=== PATIENT | male | born 1950 | race Caucasian/White ===

== ENCOUNTER 2024-09-16 08:20 | Day surgery (SDC) | payer MEDICARE ==
[2024-09-12 11:41] LABS: BASOPHILS % (AUTO) 0.6 % (0-1); EOSINOPHILS # (AUTO) 0.4 X10'3 (0-0.9); HEMATOCRIT 40.2 % (42.0-52.0); HEMOGLOBIN 13.3 g/dl (14.0-17.9); LYMPHOCYTES # (AUTO) 1.4 X10'3 (1.1-4.8); LYMPHOCYTES % (AUTO) 22.4 % (21-51); MEAN CORPUSCULAR HGB CONC 33.1 g/dL (33.0-36.5); MEAN CORPUSCULAR VOLUME 96.8 FL (78-98); MEAN PLATELET VOLUME 8.3 FL (7.4-10.4); MONOCYTES # (AUTO) 0.5 X10'3 (0-0.9); MONOCYTES % (AUTO) 8.8 % (2-12); NEUTROPHILS # (AUTO) 3.8 X10'3 (1.8-7.7); NEUTROPHILS % (AUTO) 62.2 % (42-75); PLATELET COUNT 210 X10'3 (140-440); RED BLOOD COUNT 4.15 X10'6 (4.70-6.10); RED CELL DISTRIBUTION WIDTH 13.1 % (11.5-14.5); WHITE BLOOD COUNT 6.2 X10'3 (4.5-11.0)
[2024-09-12 12:13] LABS: APTT 29 SECONDS (22-32); PROTHROMBIN TIME 10.8 SECONDS (9.0-12.0)
[2024-09-12 12:16] LABS: ALBUMIN 3.8 G/DL (3.4-5.0); ANION GAP 5 (8-16); BLOOD UREA NITROGEN 16 MG/DL (7-18); BUN/CREATININE RATIO 18.8 (10.0-20.0); CALCIUM 8.3 MG/DL (8.5-10.1); CHLORIDE 103 MMOL/L (99-107); CHOL/HDL RATIO 2.4 (0.00-4.99); CHOLESTEROL 150 MG/DL (0-200); CREATININE 0.85 MG/DL (0.60-1.10); GLUCOSE 105 MG/DL (70-104); HDL CHOLESTEROL 63 MG/DL (35-60); LDL CHOLESTEROL 73 MG/DL (50-100); POTASSIUM 3.8 MMOL/L (3.5-5.1); SODIUM 139 MMOL/L (135-145); TOTAL CARBON DIOXIDE 30.6 MMOL/L (24-32); TRIGLYCERIDES 120 MG/DL (20-135); eGFR 88 ML/MIN
[~2024-09-16] VITALS: Ht 188 cm; Wt 98.2 kg
[2024-09-16] VITALS (10 sets, daily range): BP systolic 106–145; BP diastolic 56–78; PULSE 55–73; RESP 15–20; TEMP 97.9; O2SAT 92–98
[~2024-09-16 08:20] MED LIST: ATOR10TA87 PO; NORCO10T PO; OMEP-84 PO
[2024-09-16] MEDS ORDERED: BETA1TAB20 PO (08:53)
[2024-09-16] MEDS ORDERED: GLUC100017 (08:53)
[2024-09-16] MEDS ORDERED: LEVO88TA7 PO (08:53)
[2024-09-16] MEDS ORDERED: MULT-1172 PO (08:53)
[2024-09-16] MEDS ORDERED: THC GUMMIES (08:53)
[2024-09-16] MEDS ORDERED: ATOR20TA66 PO (08:53)
[2024-09-16] MEDS ORDERED: CALC625T31 (08:53)
[2024-09-16] MEDS: diphenhydrAMINE 25mg capsule PO PRN (09:18)
[2024-09-16] MEDS: LORazepam 0.5 MG tablet PO PRN (09:18)
[2024-09-16] MEDS: normal saline 1,000 ML IV SCH (09:18)
[2024-09-16] MEDS ORDERED: heparin 1,000unit/ml 10ml vial 10 ML ONE (12:39)
[2024-09-16] MEDS ORDERED: iohexol 350MG/ML 100ml bottle IV ONE (12:39)
[2024-09-16] MEDS ORDERED: fentaNYL/PF 50MCG/1 ML 2ML syringe ONE (12:39)
[2024-09-16] MEDS ORDERED: LIDOcaine 1% (10mg/ml) 2ml vial ONE (12:39)
[2024-09-16] MEDS ORDERED: verapamil 2.5 mg/ml inj IV ONE (12:39)
[2024-09-16] MEDS ORDERED: midazolam 1 mg/ML 2ml injection ONE ×2 (12:39→13:27)
[2024-09-16] MEDS ORDERED: nitroGLYCERIN 500mcg/5mL D5W 5 ML IV ONE (12:42)
[2024-09-16] MEDS ORDERED: HYDROcodone/acetaminophen 5mg/325mg tablet PO PRN (14:10)
[2024-09-16] MEDS ORDERED: proCHLORperazine 10 MG/2 ml inj IV PRN (14:10)
[2024-09-16] MEDS ORDERED: ondansetron/PF 4mg/2ml inj IV PRN (14:10)
[2024-09-16] MEDS ORDERED: HYDROcodone/acetaminophen 10/325mg tab PO PRN (14:10)
== END 2024-09-16 17:00 | disposition home or self-care (01) ==
LOC: SSTAY O 08:20
PROVIDERS: ATTEND Student in an Organized Health Care Education/Training Program
DX: I71.40 Abdominal aortic aneurysm, without rupture, unspecified (principal); I25.10 Atherosclerotic heart disease of native coronary artery without angina pectoris; I35.1 Nonrheumatic aortic (valve) insufficiency; E78.00 Pure hypercholesterolemia, unspecified; J44.9 Chronic obstructive pulmonary disease, unspecified; K21.9 Gastro-esophageal reflux disease without esophagitis; F41.9 Anxiety disorder, unspecified; Z85.820 Personal history of malignant melanoma of skin; Z79.890 Hormone replacement therapy; Z79.899 Other long term (current) drug therapy; Z88.8 Allergy status to other drugs, medicaments and biological substances
CPT/HCPCS: 36415; 80048; 80061; 85025; 85610; 85730; 93005; 93458; 99152; 99153; A6258; A6402; C1769; C1894; J1644; J2001; J2250; J3010; J3490; J7030; Q0163; Q9967; Z7610; A6449

== ENCOUNTER 2024-10-09 13:00 | Inpatient (IN) | payer MEDICARE ==
[2024-10-08] MEDS: albuterol 2.5 MG/3 ML nebule NEB ONE (12:54)
[2024-10-08 13:00] VITALS: PULSE 68; RESP 15; O2SAT 96
[2024-10-08 13:13] VITALS: PULSE 69; RESP 16
[2024-10-08 14:36] LABS: BILIRUBIN,URINE NEGATIVE (Neg); CLARITY,URINE CLEAR (Clear); COLOR,URINE YELLOW (Yellow); GLUCOSE, URINE NEGATIVE (Neg); KETONES,URINE NEGATIVE (Neg); LEUKOCYTE ESTERASE ,URINE NEGATIVE (Neg); NITRITES, URINE NEGATIVE (Neg); OCCULT BLOOD,URINE NEGATIVE (Neg); PH,URINE 6.5 (4.8-8.0); PROTEIN,URINE NEGATIVE (Neg); UROBILINOGEN,URINE 0.2 E.U/dL (0.2-1.0)
[2024-10-08 14:37] LABS: BASOPHILS % (AUTO) 0.4 % (0-1); EOSINOPHILS # (AUTO) 0.4 X10'3 (0-0.9); EOSINOPHILS % (AUTO) 5.2 % (0-6); LYMPHOCYTES # (AUTO) 1.6 X10'3 (1.1-4.8); LYMPHOCYTES % (AUTO) 22.3 % (21-51); MEAN CORPUSCULAR HEMOGLOBIN 32.6 PG (27.0-31.0); MEAN CORPUSCULAR HGB CONC 33.8 g/dL (33.0-36.5); MEAN CORPUSCULAR VOLUME 96.4 FL (78-98); MEAN PLATELET VOLUME 8.5 FL (7.4-10.4); MONOCYTES # (AUTO) 0.7 X10'3 (0-0.9); MONOCYTES % (AUTO) 10.3 % (2-12); NEUTROPHILS # (AUTO) 4.4 X10'3 (1.8-7.7); NEUTROPHILS % (AUTO) 61.8 % (42-75); PRE OP HEMATOCRIT 41.9 % (42.0-52.0); PRE OP HEMOGLOBIN 14.2 g/dL (14.0-17.9); PRE OP PLATELET COUNT 237 X10'3 (140-440); PRE OP WHITE BLOOD COUNT 7.1 10'3 (4.8-10.8); RED BLOOD COUNT 4.35 X10'6 (4.70-6.10); RED CELL DISTRIBUTION WIDTH 13.7 % (11.5-14.5)
[2024-10-08 14:40] LABS: UA COLLECTION TYPE CLN CATCH MIDSTREAM
[2024-10-08 14:45] LABS: PRE OP PROTIME 10.3 SECONDS (9.0-12.0)
[2024-10-08 14:46] LABS: HEMOGLOBIN A1C 5.7 % (4.5-6.2)
[2024-10-08 14:47] LABS: ALBUMIN 4.3 G/DL (3.4-5.0); ALBUMIN/GLOBULIN RATIO 1.2 (1.1-1.5); ALKALINE PHOSPHATASE 87 IU/L (46-116); BLOOD UREA NITROGEN 17 MG/DL (7-18); BUN/CREATININE RATIO 22.1 (10.0-20.0); CALCIUM 8.7 MG/DL (8.5-10.1); CHLORIDE 102 MMOL/L (99-107); CREATININE 0.77 MG/DL (0.60-1.10); PRE OP ALT 38 U/L (30-65); PRE OP ANION GAP 5 (8-16); PRE OP AST 26 U/L (10-37); PRE OP BILIRUB, TOTAL 0.6 MG/DL (0.0-1.0); PRE OP GLUCOSE 107 MG/DL (70-104); PRE OP POTASSIUM 3.7 MMOL/L (3.4-5.1); PRE OP SODIUM 138 MMOL/L (135-145); TOTAL CARBON DIOXIDE 30.8 MMOL/L (24-32); eCRCL 98 ML/MIN; eGFR > 90 ML/MIN
[2024-10-08 15:04] LABS: ABG BASE EXCESS -0.5 mmol/L (-2.0-3.0); ABG HCO3 22.5 mmol/L (21.0-28.0); ABG OXYGEN SATURATION 96.6 % (94.0-98.0); ABG PCO2 (T) 32.5 mmHg (35.0-48.0); ABG PH (T) 7.458 (7.350-7.450); ABG PO2 (T) 84.7 mmHg (83.0-108.0); ALLEN'S TEST POSITIVE; FCOHb 1.9 % (0.5-1.5); FHHb 3.3 % (0.0-5.0); FMetHb 0.3 % (0.0-1.5); FO2Hb 94.5 % (94.0-98.0); MODE ROOM AIR; TOTAL HEMOGLOBIN 14.6 G/dl (13.5-17.5)
[~2024-10-09] VITALS: Ht 185.4 cm; Wt 111.0 kg
[~2024-10-09 13:00] MED LIST changes: +ASPI-1071 PO; -ATOR10TA87 PO; +ATOR20TA66 PO; +LEVO88TA7 PO; +MULT-1172 PO; -NORCO10T PO
[2024-10-09] MEDS ORDERED: [UNRECOGNIZED DRUG - OTHER] (13:16)
[2024-10-09] MEDS ORDERED: THC (13:16)
[2024-10-09] MEDS ORDERED: ASCO500C17 PO (13:16)
[2024-10-10] VITALS (28 sets, daily range): BP systolic 90–135; BP diastolic 31–68; PULSE 56–98; RESP 12–18; TEMP 96.4–98; O2SAT 95–100
[2024-10-10] MEDS: Insulin Reg/NS 100units/100mL 100 ML IV SCH ×2 (05:30→13:05)
[2024-10-10] MEDS ORDERED: dextrose 50%-water 50ml dispensing syringe IV PRN ×2 (05:30→13:05)
[2024-10-10] MEDS: mupirocin 2% nasal ointment 1gm UD NS ONE (06:15)
[2024-10-10] MEDS: metoprolol tartrate 12.5mg (1/2 tablet) PO ONE (06:15)
[2024-10-10] MEDS: VANCOMYCIN 1,500MG inj. 1,500 MG in normal saline 500ml IV soln 300 ML IV ONE (06:15)
[2024-10-10] MEDS: ceFAZolin 2gm in dextrose, iso 50 ML IV ONE (06:18)
[2024-10-10] MEDS: famotidine 20mg tablet PO ONE (06:19)
[2024-10-10] MEDS: ringers solution, lacted 1,000 ML IV SCH (06:19)
[2024-10-10] MEDS ORDERED: epiNEPHrine 1 mg/ml inj ONE (06:37)
[2024-10-10] MEDS ORDERED: vancomycin 1,000mg inj ONE (06:38)
[2024-10-10] MEDS ORDERED: BUPIVAcaine 0.5% inj/PF 30 ML ONE (06:38)
[2024-10-10] MEDS ORDERED: ceFAZolin 1000mg inj ONE ×2 (06:38→12:37)
[2024-10-10] MEDS: LORazepam 2 mg/ml vial IV ONE (07:27)
[2024-10-10] MEDS ORDERED: MIDAZolam 1mg/ml 10ml vial ONE (07:46)
[2024-10-10] MEDS ORDERED: potassium Cl 2 mEq/ml inj IV ONE (08:00)
[2024-10-10] MEDS ORDERED: FENTANYL-0.9 % NACL/PF 100 ML IV SCH (08:05)
[2024-10-10] MEDS ORDERED: midazolam 100mg in NS 100ml 100 ML IV SCH (08:05)
[2024-10-10] MEDS ORDERED: fentaNYL/PF 50MCG/1 ML 2ML syringe IV PRN (08:05)
[2024-10-10] MEDS: midazolam 1 mg/ML 2ml injection IV ONE (08:05)
[2024-10-10] MEDS ORDERED: isoflurane 100ml inhalation liquid IH ONE (08:08)
[2024-10-10 08:41] LABS: ABG BASE EXCESS -2.8 mmol/L (-2.0-3.0); ABG HCO3 21.7 mmol/L (21.0-28.0); ABG OXYGEN SATURATION 99.7 % (94.0-98.0); ABG PCO2 36.9 mmHg (35.0-48.0); ABG PH 7.388 (7.350-7.450); CL (ABG) 105 mmol/L (98-107); FCOHb 0.5 % (0.5-1.5); FHHb 0.3 % (0.0-5.0); FMetHb 0.1 % (0.0-1.5); FO2Hb 99.1 % (94.0-98.0); GLUCOSE (ABG) 94 mg/dl (65-95); IONIZED CA (ABG) 1.13 mmol/L (1.15-1.33); K (ABG) 3.9 mmol/L (3.40-4.50); TOTAL HEMOGLOBIN 12.9 G/dl (13.5-17.5)
[2024-10-10] MEDS ORDERED: rocuronium 10mg/ml inj IV ONE ×4 (08:42→12:07)
[2024-10-10] MEDS ORDERED: SUfentanil 50mcg/ml 1ml amp IV ONE (08:42)
[2024-10-10] MEDS ORDERED: 0.9 % SODIUM CHLORIDE 10 ML VIAL ONE (08:42)
[2024-10-10] MEDS ORDERED: LIDOcaine 2% (20mg/ml) 5ml vial ONE (08:42)
[2024-10-10] MEDS ORDERED: phenylephrine 10mg/ml inj. ONE (08:42)
[2024-10-10] MEDS ORDERED: albumin (Human) 5% 250ml 250 ML IV ONE ×2 (09:09→12:26)
[2024-10-10] MEDS ORDERED: ondansetron/PF 4mg/2ml inj ONE (09:09)
[2024-10-10] MEDS ORDERED: dexamethasone sod phosphate 4mg/ml inj. ONE (09:09)
[2024-10-10] MEDS: ceFAZolin 1000mg inj IR ONE (09:36)
[2024-10-10 09:42] LABS: ABG BASE EXCESS VENOUS -0.9 mmol/L (-2.0-3.0); ABG HCO3 VENOUS 24.6 mmol/L (22.0-29.0); ABG OXYGEN SATURATION VENOUS 80.2 % (60.0-85.0); ABG PCO2 VENOUS 44.7 mmHg (38.0-54.0); ABG PH (VENOUS) 7.359 (7.320-7.430); ABG PO2 VENOUS 45.9 mmHg (23.0-48.0); CL (ABG) 99 mmol/L (98-107); FCOHb VENOUS 0.1 % (0.5-1.5); FHHb VENOUS 19.8 %; FMetHb VENOUS 0.1 % (0.5-1.5); GLUCOSE (ABG) 93 mg/dl (65-95); IONIZED CA (ABG) 0.95 mmol/L (1.15-1.33); K (ABG) 4.1 mmol/L (3.40-4.50); TOTAL HEMOGLOBIN 10.2 G/dl (13.5-17.5)
[2024-10-10 09:48] LABS: ABG BASE EXCESS -0.5 mmol/L (-2.0-3.0); ABG HCO3 24.7 mmol/L (21.0-28.0); ABG OXYGEN SATURATION 99.5 % (94.0-98.0); ABG PCO2 42.7 mmHg (35.0-48.0); CL (ABG) 101 mmol/L (98-107); FCOHb 0.3 % (0.5-1.5); FHHb 0.5 % (0.0-5.0); FMetHb 0.1 % (0.0-1.5); FO2Hb 99.1 % (94.0-98.0); GLUCOSE (ABG) 97 mg/dl (65-95); K (ABG) 3.9 mmol/L (3.40-4.50); TOTAL HEMOGLOBIN 10.3 G/dl (13.5-17.5)
[2024-10-10] MEDS: vancomycin 1,000mg inj IVT ONE (09:51)
[2024-10-10 10:23] LABS: ABG BASE EXCESS -1.2 mmol/L (-2.0-3.0); ABG HCO3 23.8 mmol/L (21.0-28.0); ABG OXYGEN SATURATION 99.5 % (94.0-98.0); ABG PCO2 40.7 mmHg (35.0-48.0); ABG PH 7.384 (7.350-7.450); CL (ABG) 102 mmol/L (98-107); FCOHb 0.3 % (0.5-1.5); FHHb 0.5 % (0.0-5.0); FMetHb 0.1 % (0.0-1.5); FO2Hb 99.1 % (94.0-98.0); GLUCOSE (ABG) 103 mg/dl (65-95); IONIZED CA (ABG) 1.01 mmol/L (1.15-1.33); K (ABG) 3.9 mmol/L (3.40-4.50); TOTAL HEMOGLOBIN 10.4 G/dl (13.5-17.5)
[2024-10-10] MEDS ORDERED: propofol inj 20 ML IV ONE (10:29)
[2024-10-10 10:45] LABS: ABG BASE EXCESS -1.4 mmol/L (-2.0-3.0); ABG HCO3 22.6 mmol/L (21.0-28.0); ABG OXYGEN SATURATION 99.3 % (94.0-98.0); ABG PCO2 35.3 mmHg (35.0-48.0); ABG PH 7.424 (7.350-7.450); CL (ABG) 103 mmol/L (98-107); FCOHb 0.3 % (0.5-1.5); FHHb 0.7 % (0.0-5.0); FMetHb 0.3 % (0.0-1.5); FO2Hb 98.7 % (94.0-98.0); GLUCOSE (ABG) 99 mg/dl (65-95); IONIZED CA (ABG) 0.98 mmol/L (1.15-1.33); K (ABG) 3.8 mmol/L (3.40-4.50); TOTAL HEMOGLOBIN 10.4 G/dl (13.5-17.5)
[2024-10-10 11:20] LABS: ABG BASE EXCESS -0.1 mmol/L (-2.0-3.0); ABG HCO3 22.7 mmol/L (21.0-28.0); ABG OXYGEN SATURATION 98.9 % (94.0-98.0); ABG PCO2 30.7 mmHg (35.0-48.0); ABG PH 7.487 (7.350-7.450); ABG PO2 255.6 mmHg (83.0-108.0); CL (ABG) 101 mmol/L (98-107); FCOHb 0.3 % (0.5-1.5); FHHb 1.1 % (0.0-5.0); FMetHb 0.3 % (0.0-1.5); FO2Hb 98.3 % (94.0-98.0); GLUCOSE (ABG) 118 mg/dl (65-95); IONIZED CA (ABG) 1.25 mmol/L (1.15-1.33); K (ABG) 4.4 mmol/L (3.40-4.50); TOTAL HEMOGLOBIN 10.1 G/dl (13.5-17.5)
[2024-10-10 12:00] LABS: ABG BASE EXCESS -2.7 mmol/L (-2.0-3.0); ABG HCO3 21.7 mmol/L (21.0-28.0); ABG OXYGEN SATURATION 99.1 % (94.0-98.0); ABG PCO2 35.8 mmHg (35.0-48.0); CL (ABG) 104 mmol/L (98-107); FCOHb 0.3 % (0.5-1.5); FHHb 0.9 % (0.0-5.0); FMetHb 0.3 % (0.0-1.5); FO2Hb 98.5 % (94.0-98.0); GLUCOSE (ABG) 115 mg/dl (65-95); IONIZED CA (ABG) 1.09 mmol/L (1.15-1.33); K (ABG) 4.3 mmol/L (3.40-4.50); TOTAL HEMOGLOBIN 9.7 G/dl (13.5-17.5)
[2024-10-10 12:03] LABS: ACTIVATED CLOTTING TIME 128 SEC (101-148)
[2024-10-10 12:33] LABS: BASOPHILS % (AUTO) 0.4 % (0-1); EOSINOPHILS # (AUTO) 0.2 X10'3 (0-0.9); EOSINOPHILS % (AUTO) 1.7 % (0-6); HEMATOCRIT 23.8 % (42.0-52.0); LYMPHOCYTES # (AUTO) 0.9 X10'3 (1.1-4.8); MEAN CORPUSCULAR HEMOGLOBIN 32.6 PG (27.0-31.0); MEAN CORPUSCULAR HGB CONC 33.6 g/dL (33.0-36.5); MONOCYTES # (AUTO) 0.5 X10'3 (0-0.9); MONOCYTES % (AUTO) 4.3 % (2-12); NEUTROPHILS % (AUTO) 85.6 % (42-75); PLATELET COUNT 121 X10'3 (140-440); RED BLOOD COUNT 2.46 X10'6 (4.70-6.10); RED CELL DISTRIBUTION WIDTH 13.3 % (11.5-14.5); WHITE BLOOD COUNT 11.7 X10'3 (4.5-11.0)
[2024-10-10 12:49] LABS: APTT 39 SECONDS (22-32); FIBRINOGEN 138 MG/DL (177-424); INR 1.4 INR; PROTHROMBIN TIME 14.6 SECONDS (9.0-12.0)
[2024-10-10] MEDS ORDERED: potassium Cl 20 mEq SR tablet PO PRN (13:05)
[2024-10-10] MEDS ORDERED: mineral oil 133ml enema RC PRN (13:05)
[2024-10-10] MEDS ORDERED: Neutra Phos packet PO PRN (13:05)
[2024-10-10] MEDS ORDERED: potassium Cl 40MEQ/270ML bag 250 ML IV PRN (13:05)
[2024-10-10] MEDS ORDERED: sodium phosphate inj. 30 MMOL in dextrose 5%-water 250 ML IV PRN (13:05)
[2024-10-10] MEDS ORDERED: potassium CL 10mEq/100ml bag 100 ML IV PRN (13:05)
[2024-10-10] MEDS ORDERED: metoclopramide 5 mg/ml inj IV PRN (13:05)
[2024-10-10] MEDS ORDERED: insulin glargine (Lantus) pen - multi-dose SQ PRN (13:05)
[2024-10-10] MEDS ORDERED: sodium phosphate inj. 15 MMOL in dextrose 5%-water 250 ML IV PRN (13:05)
[2024-10-10] MEDS ORDERED: potassium Cl 40MEQ/1/2NS 520ml 520 ML IV PRN (13:05)
[2024-10-10] MEDS ORDERED: magnesium hydroxide 30ml (MOM) UD suspension PO PRN (13:05)
[2024-10-10] MEDS ORDERED: acetaminophen 325mg tablet PO PRN (13:05)
[2024-10-10] MEDS: albumin (Human) 5% 250ml 250 ML IV PRN (13:24)
[2024-10-10 13:33] LABS: ABG BASE EXCESS -4.7 mmol/L (-2.0-3.0); ABG HCO3 21.8 mmol/L (21.0-28.0); ABG OXYGEN SATURATION 99.6 % (94.0-98.0); ABG PCO2 (T) 44.2 mmHg (35.0-48.0); ABG PH (T) 7.305 (7.350-7.450); ABG PO2 (T) 398.2 mmHg (83.0-108.0); FCOHb 0.3 % (0.5-1.5); FHHb 0.4 % (0.0-5.0); FMetHb 0.3 % (0.0-1.5); MODE VENT - SIMV; PEEP 5 cm H2O; RESPIRATORY RATE 12 b/min; TIDAL VOLUME 600 mL; TOTAL HEMOGLOBIN 10.7 G/dl (13.5-17.5)
[2024-10-10 13:48] LABS: BASOPHILS % (AUTO) 0.1 % (0-1); EOSINOPHILS # (AUTO) 0.2 X10'3 (0-0.9); EOSINOPHILS % (AUTO) 1.3 % (0-6); HEMOGLOBIN 8.9 g/dl (14.0-17.9); LYMPHOCYTES % (AUTO) 6.3 % (21-51); MEAN CORPUSCULAR HEMOGLOBIN 32.3 PG (27.0-31.0); MEAN CORPUSCULAR HGB CONC 33.1 g/dL (33.0-36.5); MEAN CORPUSCULAR VOLUME 97.5 FL (78-98); MEAN PLATELET VOLUME 8.2 FL (7.4-10.4); MONOCYTES # (AUTO) 0.5 X10'3 (0-0.9); MONOCYTES % (AUTO) 3.5 % (2-12); NEUTROPHILS # (AUTO) 13.5 X10'3 (1.8-7.7); NEUTROPHILS % (AUTO) 88.8 % (42-75); PLATELET COUNT 155 X10'3 (140-440); RED BLOOD COUNT 2.77 X10'6 (4.70-6.10); RED CELL DISTRIBUTION WIDTH 13.6 % (11.5-14.5); WHITE BLOOD COUNT 15.2 X10'3 (4.5-11.0)
[2024-10-10 13:58] LABS: ALANINE AMINOTRANSFERASE 19 U/L (12-78); ALBUMIN 2.4 G/DL (3.4-5.0); ALBUMIN/GLOBULIN RATIO 1.6 (1.1-1.5); ALKALINE PHOSPHATASE 32 IU/L (46-116); ANION GAP 7 (8-16); ASPARTATE AMINO TRANSFERASE 29 U/L (10-37); BILIRUBIN,TOTAL 0.8 MG/DL (0.1-1.0); BLOOD UREA NITROGEN 11 MG/DL (7-18); BUN/CREATININE RATIO 18.6 (10.0-20.0); CHLORIDE 112 MMOL/L (99-107); CREATININE 0.59 MG/DL (0.60-1.10); GLUCOSE 194 MG/DL (70-104); MAGNESIUM 1.9 MG/DL (1.5-2.4); PHOSPHORUS 2.9 MG/DL (2.3-4.5); POTASSIUM 3.4 MMOL/L (3.5-5.1); SODIUM 141 MMOL/L (135-145); TOTAL CARBON DIOXIDE 21.9 MMOL/L (24-32); TOTAL PROTEIN 3.9 G/DL (6.4-8.2); eCRCL 124 ML/MIN; eGFR > 90 ML/MIN
[2024-10-10 14:06] LABS: CALCIUM 6.1 MG/DL (8.5-10.1)
[2024-10-10] MEDS: sodium chloride 0.45% 1,000 ML IV SCH (14:24)
[2024-10-10 15:43] LABS: APTT 45 SECONDS (22-32); FIBRINOGEN 97 MG/DL (177-424); INR 1.6 INR; PROTHROMBIN TIME 16.4 SECONDS (9.0-12.0)
[2024-10-10] MEDS: ceFAZolin/D5W- 1GM premix 50 ML IV SCH (16:37)
[2024-10-10] MEDS: albumin (Human) 5% 250ml 250 ML IV ONE (16:38)
[2024-10-10] MEDS ORDERED: [UNRECOGNIZED DRUG - OTHER] IV ONE (16:45)
[2024-10-10] MEDS: [UNRECOGNIZED DRUG - OTHER] IV ONE (17:22)
[2024-10-10] MEDS: potassium Cl 20mEq/100mL bag 100 ML IV PRN (18:00)
[2024-10-10 18:05] LABS: HEMATOCRIT 24.1 % (42.0-52.0); MEAN CORPUSCULAR HEMOGLOBIN 31.3 PG (27.0-31.0); MEAN CORPUSCULAR VOLUME 94.9 FL (78-98); PLATELET COUNT 81 X10'3 (140-440); RED BLOOD COUNT 2.54 X10'6 (4.70-6.10); RED CELL DISTRIBUTION WIDTH 14.2 % (11.5-14.5); WHITE BLOOD COUNT 18.1 X10'3 (4.5-11.0)
[2024-10-10 18:10] LABS: APTT 42 SECONDS (22-32); FIBRINOGEN 243 MG/DL (177-424); PROTHROMBIN TIME 10.5 SECONDS (9.0-12.0)
[2024-10-10] MEDS: amiodarone 150mg/dext, iso-os 100 ML IV ONE ×2 (18:12→18:34)
[2024-10-10] MEDS: calcium chloride 100 MG/1 ML inj IV ONE (18:15)
[2024-10-10 18:22] LABS: ABG BASE EXCESS -5.9 mmol/L (-2.0-3.0); ABG HCO3 19.4 mmol/L (21.0-28.0); ABG OXYGEN SATURATION 97.9 % (94.0-98.0); ABG PCO2 (T) 36.3 mmHg (35.0-48.0); ABG PH (T) 7.343 (7.350-7.450); ABG PO2 (T) 111.5 mmHg (83.0-108.0); FCOHb 0.4 % (0.5-1.5); FHHb 2.1 % (0.0-5.0); FMetHb 0.3 % (0.0-1.5); FO2Hb 97.2 % (94.0-98.0); PATIENT TEMPERATURE 36.3; PEEP 5 cm H2O; RESPIRATORY RATE 12 b/min; TIDAL VOLUME 600 mL
[2024-10-10] MEDS: amiodarone/D5 360MG/200ML BAG 200 ML IV SCH (18:35)
[2024-10-10] MEDS: magnesium sulf-water 4G/100mL 100 ML IV PRN (18:35)
[2024-10-10] MEDS: nitroGLYCERIN-Tridil 50MG/D5W 250 ML IV PRN (18:36)
[2024-10-10 19:28] LABS: APTT 34 SECONDS (22-32); FIBRINOGEN 252 MG/DL (177-424); PROTHROMBIN TIME 10.4 SECONDS (9.0-12.0)
[2024-10-10] MEDS: NORepinephrine 8mg/ 250ml NS 250 ML IV PRN (19:30)
[2024-10-10 19:38] LABS: ANION GAP 15 (8-16); BLOOD UREA NITROGEN 15 MG/DL (7-18); BUN/CREATININE RATIO 14.4 (10.0-20.0); CALCIUM 8.1 MG/DL (8.5-10.1); CHLORIDE 110 MMOL/L (99-107); CREATININE 1.04 MG/DL (0.60-1.10); GLUCOSE 167 MG/DL (70-104); SODIUM 145 MMOL/L (135-145); TOTAL CARBON DIOXIDE 19.6 MMOL/L (24-32); eCRCL 70 ML/MIN; eGFR 70 ML/MIN
[2024-10-10] MEDS: sennosides/docusate sodium tablet PO SCH (20:00)
[2024-10-10] MEDS: mupirocin 2% nasal ointment 1gm UD NS SCH (20:05)
[2024-10-10] MEDS: VANCOMYCIN 1GM 200ML H20 (PEG) 200 ML IV SCH (20:05)
[2024-10-10] MEDS: atorvastatin 10mg tablet PO SCH (20:05)
[2024-10-10] MEDS: HYDROcodone/acetaminophen 10/325mg tab PO PRN (20:06)
[2024-10-10] MEDS: morphine 2 MG/ML inj. syringe IV PRN (21:01)
[2024-10-10] MEDS ORDERED: albuterol 2.5 MG/3 ML nebule NEB PRN (21:35)
[2024-10-10] MEDS: morphine 4 MG/ML inj SYRINge IV PRN (22:03)
[2024-10-11] VITALS (25 sets, daily range): BP systolic 88–130; BP diastolic 38–67; PULSE 65–78; RESP 7–16; O2SAT 92–96
[2024-10-11] MEDS: HYDROcodone/acetaminophen 10/325mg tab PO PRN (01:19)
[2024-10-11 04:59] LABS: ALANINE AMINOTRANSFERASE 49 U/L (12-78); ALBUMIN 3.2 G/DL (3.4-5.0); ALBUMIN/GLOBULIN RATIO 1.6 (1.1-1.5); ALKALINE PHOSPHATASE 36 IU/L (46-116); ANION GAP 9 (8-16); ASPARTATE AMINO TRANSFERASE 76 U/L (10-37); BILIRUBIN,TOTAL 1.1 MG/DL (0.1-1.0); BLOOD UREA NITROGEN 21 MG/DL (7-18); CALCIUM 7.6 MG/DL (8.5-10.1); CHLORIDE 109 MMOL/L (99-107); CREATININE 0.84 MG/DL (0.60-1.10); EOSINOPHILS % (AUTO) 0 % (0-6); GLUCOSE 157 MG/DL (70-104); HEMOGLOBIN 7.2 g/dl (14.0-17.9); LYMPHOCYTES # (AUTO) 0.6 X10'3 (1.1-4.8); MAGNESIUM 2.5 MG/DL (1.5-2.4); MEAN CORPUSCULAR VOLUME 90.7 FL (78-98); MONOCYTES # (AUTO) 0.9 X10'3 (0-0.9); MONOCYTES % (AUTO) 6.5 % (2-12); PHOSPHORUS 3.3 MG/DL (2.3-4.5); POTASSIUM 4.8 MMOL/L (3.5-5.1); SODIUM 140 MMOL/L (135-145); TOTAL CARBON DIOXIDE 22.2 MMOL/L (24-32); TOTAL PROTEIN 5.2 G/DL (6.4-8.2); eCRCL 87 ML/MIN; eGFR 89 ML/MIN
[2024-10-11 05:00] LABS: BASOPHILS % (AUTO) 0 % (0-1); LYMPHOCYTES % (AUTO) 4.5 % (21-51); MEAN CORPUSCULAR HGB CONC 34.2 g/dL (33.0-36.5); MEAN PLATELET VOLUME 8.9 FL (7.4-10.4); NEUTROPHILS # (AUTO) 12.2 X10'3 (1.8-7.7); PLATELET COUNT 59 X10'3 (140-440); RED BLOOD COUNT 2.32 X10'6 (4.70-6.10); RED CELL DISTRIBUTION WIDTH 15.8 % (11.5-14.5); WHITE BLOOD COUNT 13.7 X10'3 (4.5-11.0)
[2024-10-11 05:20] LABS: HEMATOCRIT 21.1 % (42.0-52.0)
[2024-10-11] MEDS: metoprolol tartrate 12.5mg (1/2 tablet) PO SCH (08:00)
[2024-10-11] MEDS: aspirin 81mg tab.chew PO SCH (09:02)
[2024-10-11] MEDS ORDERED: DEXTROSE 15 GM of carb/4 tabs (each vial/BOTTLE has 4 tablets) PO PRN ×2 (10:05)
[2024-10-11] MEDS ORDERED: glucagon, human recombinant 1mg kit SUBCUT PRN (10:05)
[2024-10-11] MEDS ORDERED: dextrose 50%-water 50ml dispensing syringe IV PRN ×2 (10:05)
[2024-10-11] MEDS: levoTHYROXINE 88mcg tablet PO SCH (10:08)
[2024-10-11] MEDS: insulin glargine (Lantus) pen - multi-dose SQ SCH (11:23)
[2024-10-11] MEDS: INSULIN LISPRO 100 UNIT/ML INSULN.PEN MULTI-DOSE SQ SCH (12:00)
[2024-10-11] MEDS: midodrine 5mg tablet PO SCH (13:22)
[2024-10-11] MEDS ORDERED: mineral oil/petrolatum ophthal oint EACHEYE SCH (14:00)
[2024-10-12] VITALS (30 sets, daily range): BP systolic 104–207; BP diastolic 48–85; PULSE 61–87; RESP 9–25; TEMP 99; O2SAT 90–99
[2024-10-12 02:32] LABS: BASOPHILS % (AUTO) 0.1 % (0-1); RED BLOOD COUNT 2.18 X10'6 (4.70-6.10)
[2024-10-12 02:36] LABS: EOSINOPHILS % (AUTO) 0.1 % (0-6); LYMPHOCYTES # (AUTO) 0.7 X10'3 (1.1-4.8); LYMPHOCYTES % (AUTO) 3.5 % (21-51); MEAN CORPUSCULAR HEMOGLOBIN 30.4 PG (27.0-31.0); MEAN CORPUSCULAR HGB CONC 33.4 g/dL (33.0-36.5); MEAN CORPUSCULAR VOLUME 91.1 FL (78-98); MEAN PLATELET VOLUME 9.6 FL (7.4-10.4); MONOCYTES # (AUTO) 1.5 X10'3 (0-0.9); MONOCYTES % (AUTO) 7.5 % (2-12); NEUTROPHILS # (AUTO) 17.4 X10'3 (1.8-7.7); NEUTROPHILS % (AUTO) 88.8 % (42-75); PLATELET COUNT 54 X10'3 (140-440); WHITE BLOOD COUNT 19.6 X10'3 (4.5-11.0)
[2024-10-12 02:40] LABS: HEMATOCRIT 19.9 % (42.0-52.0)
[2024-10-12 02:41] LABS: HEMOGLOBIN 6.6 g/dl (14.0-17.9)
[2024-10-12 02:53] LABS: ALBUMIN 3.2 G/DL (3.4-5.0); ANION GAP 7 (8-16); BLOOD UREA NITROGEN 33 MG/DL (7-18); BUN/CREATININE RATIO 35.9 (10.0-20.0); CALCIUM 7.6 MG/DL (8.5-10.1); CHLORIDE 103 MMOL/L (99-107); CREATININE 0.92 MG/DL (0.60-1.10); GLUCOSE 159 MG/DL (70-104); MAGNESIUM 2.3 MG/DL (1.5-2.4); PHOSPHORUS 3.3 MG/DL (2.3-4.5); POTASSIUM 4.4 MMOL/L (3.5-5.1); SODIUM 134 MMOL/L (135-145); TOTAL CARBON DIOXIDE 24.1 MMOL/L (24-32); eCRCL 80 ML/MIN; eGFR 80 ML/MIN
[2024-10-12] MEDS: niCARDipine-NS 40mg/200ml IVPB 200 ML IV PRN (04:21)
[2024-10-12] MEDS: dexmedetomidin/NS 400mcg/100ml 100 ML IV PRN (05:39)
[2024-10-12] MEDS ORDERED: dexmedetomidin/NS 400mcg/100ml 100 ML IV PRN (06:59)
[2024-10-12] MEDS: pantoprazole 40mg Tablet.DR PO SCH (07:41)
[2024-10-12] MEDS: magnesium sulf-water 2g/50mL 50 ML IV PRN (07:43)
[2024-10-12 07:53] LABS: HEMOGLOBIN 7.7 g/dl (14.0-17.9); WHITE BLOOD COUNT 22.5 X10'3 (4.5-11.0)
[2024-10-12 07:55] LABS: HEMATOCRIT 23.3 % (42.0-52.0); MEAN CORPUSCULAR HEMOGLOBIN 30.1 PG (27.0-31.0); MEAN CORPUSCULAR HGB CONC 33.2 g/dL (33.0-36.5); MEAN CORPUSCULAR VOLUME 90.7 FL (78-98); MEAN PLATELET VOLUME 10.1 FL (7.4-10.4); PLATELET COUNT 63 X10'3 (140-440); RED BLOOD COUNT 2.56 X10'6 (4.70-6.10); RED CELL DISTRIBUTION WIDTH 16.1 % (11.5-14.5)
[2024-10-12] MEDS: ketorolac trometh 15mg/ml vial 15 MG/ML ML IV SCH (12:42)
[2024-10-12] MEDS ORDERED: ketorolac trometh 15mg/ml vial 15 MG/ML ML IM SCH (14:00)
[2024-10-12 17:51] LABS: HEMATOCRIT 23.6 % (42.0-52.0); HEMOGLOBIN 7.9 g/dl (14.0-17.9); MEAN CORPUSCULAR HEMOGLOBIN 30.1 PG (27.0-31.0); MEAN CORPUSCULAR HGB CONC 33.2 g/dL (33.0-36.5); MEAN CORPUSCULAR VOLUME 90.5 FL (78-98); MEAN PLATELET VOLUME 9.7 FL (7.4-10.4); PLATELET COUNT 64 X10'3 (140-440); RED BLOOD COUNT 2.61 X10'6 (4.70-6.10); RED CELL DISTRIBUTION WIDTH 16.3 % (11.5-14.5); WHITE BLOOD COUNT 19.9 X10'3 (4.5-11.0)
[2024-10-12] MEDS: metoprolol tartrate 25mg tablet PO SCH (19:05)
[2024-10-12] MEDS: ondansetron/PF 4mg/2ml inj IV PRN (21:49)
[2024-10-12] MEDS: acetaminophen 325mg tablet PO PRN (21:49)
[2024-10-12] MEDS: morphine 2 MG/ML inj. syringe IV PRN (21:50)
[2024-10-13] VITALS (27 sets, daily range): BP systolic 100–166; BP diastolic 40–88; PULSE 57–72; RESP 11–19; TEMP 98.2; O2SAT 93–99
[2024-10-13 02:57] LABS: BASOPHILS % (AUTO) 0 % (0-1); EOSINOPHILS % (AUTO) 0 % (0-6); HEMOGLOBIN 7.9 g/dl (14.0-17.9); LYMPHOCYTES # (AUTO) 0.9 X10'3 (1.1-4.8); MONOCYTES # (AUTO) 1.4 X10'3 (0-0.9); MONOCYTES % (AUTO) 7.3 % (2-12)
[2024-10-13 03:00] LABS: HEMATOCRIT 23.6 % (42.0-52.0); LYMPHOCYTES % (AUTO) 4.7 % (21-51); MEAN CORPUSCULAR HEMOGLOBIN 30.4 PG (27.0-31.0); MEAN CORPUSCULAR HGB CONC 33.5 g/dL (33.0-36.5); MEAN CORPUSCULAR VOLUME 90.7 FL (78-98); MEAN PLATELET VOLUME 10.3 FL (7.4-10.4); NEUTROPHILS # (AUTO) 16.4 X10'3 (1.8-7.7); PLATELET COUNT 70 X10'3 (140-440); RED CELL DISTRIBUTION WIDTH 15.8 % (11.5-14.5); WHITE BLOOD COUNT 18.6 X10'3 (4.5-11.0)
[2024-10-13 03:29] LABS: ALBUMIN 3.3 G/DL (3.4-5.0); ANION GAP 6 (8-16); BLOOD UREA NITROGEN 40 MG/DL (7-18); CALCIUM 7.6 MG/DL (8.5-10.1); CHLORIDE 101 MMOL/L (99-107); CREATININE 0.91 MG/DL (0.60-1.10); GLUCOSE 121 MG/DL (70-104); MAGNESIUM 2.5 MG/DL (1.5-2.4); PHOSPHORUS 3.4 MG/DL (2.3-4.5); POTASSIUM 4.4 MMOL/L (3.5-5.1); SODIUM 134 MMOL/L (135-145); THYROID STIMULATING HORMONE 4.16 ulU/ml (0.34-4.50); TOTAL CARBON DIOXIDE 26.6 MMOL/L (24-32); eCRCL 80 ML/MIN; eGFR 81 ML/MIN
[2024-10-13] MEDS: amiodarone 200mg tablet PO SCH (09:13)
[2024-10-13] MEDS: furosemide 40mg/4ml inj IV ONE (10:52)
[2024-10-13 11:48] LABS: ABG PO2 402.3 mmHg (83.0-108.0)
[2024-10-13 11:49] LABS: ABG PO2 443.7 mmHg (83.0-108.0)
[2024-10-13 11:49] LABS: ABG PO2 433.1 mmHg (83.0-108.0)
[2024-10-13 11:49] LABS: ABG PO2 429.5 mmHg (83.0-108.0)
[2024-10-13 11:50] LABS: ABG PO2 313.9 mmHg (83.0-108.0)
[2024-10-13] MEDS: lactose-reduced food (Ensure Enlive) - 237ml bottle PO SCH (13:42)
[2024-10-14] VITALS (11 sets, daily range): BP systolic 103–110; BP diastolic 45–63; PULSE 57–66; RESP 10–18; TEMP 97.3–98.7; O2SAT 92–98
[2024-10-14 02:45] LABS: BASOPHILS % (AUTO) 0 % (0-1); HEMOGLOBIN 7.5 g/dl (14.0-17.9)
[2024-10-14 02:46] LABS: EOSINOPHILS % (AUTO) 0.1 % (0-6); HEMATOCRIT 23.1 % (42.0-52.0); LYMPHOCYTES % (AUTO) 7.3 % (21-51); MEAN CORPUSCULAR HEMOGLOBIN 30.1 PG (27.0-31.0); MEAN CORPUSCULAR HGB CONC 32.5 g/dL (33.0-36.5); MEAN CORPUSCULAR VOLUME 92.6 FL (78-98); MEAN PLATELET VOLUME 9.7 FL (7.4-10.4); MONOCYTES % (AUTO) 7.4 % (2-12); NEUTROPHILS # (AUTO) 11.3 X10'3 (1.8-7.7); NEUTROPHILS % (AUTO) 85.2 % (42-75); PLATELET COUNT 87 X10'3 (140-440); RED BLOOD COUNT 2.49 X10'6 (4.70-6.10); RED CELL DISTRIBUTION WIDTH 15.7 % (11.5-14.5); WHITE BLOOD COUNT 13.2 X10'3 (4.5-11.0)
[2024-10-14 02:56] LABS: ALBUMIN 2.9 G/DL (3.4-5.0); ANION GAP 6 (8-16); BLOOD UREA NITROGEN 40 MG/DL (7-18); BUN/CREATININE RATIO 57.1 (10.0-20.0); CALCIUM 8.1 MG/DL (8.5-10.1); CHLORIDE 105 MMOL/L (99-107); GLUCOSE 104 MG/DL (70-104); MAGNESIUM 2.4 MG/DL (1.5-2.4); POTASSIUM 4.5 MMOL/L (3.5-5.1); SODIUM 136 MMOL/L (135-145); TOTAL CARBON DIOXIDE 25.3 MMOL/L (24-32); eCRCL 105 ML/MIN; eGFR > 90 ML/MIN
[2024-10-14 03:24] LABS: NUCLEATED RED BLOOD CELLS 2 /100WBC (0-0); TOTAL CELLS COUNTED 100
[2024-10-14 03:25] LABS: PLATELET ESTIMATE DECREASED
[2024-10-14 07:34] LABS: ABG BASE EXCESS -0.3 mmol/L (-2.0-3.0); ABG HCO3 22.1 mmol/L (21.0-28.0); ABG OXYGEN SATURATION 95.4 % (94.0-98.0); ABG PCO2 (T) 27.2 mmHg (35.0-48.0); ABG PH (T) 7.526 (7.350-7.450); ABG PO2 (T) 70.8 mmHg (83.0-108.0); ALLEN'S TEST POSITIVE; FCOHb 0.2 % (0.5-1.5); FHHb 4.6 % (0.0-5.0); FLOW 1 L/min; FMetHb 0.3 % (0.0-1.5); FO2Hb 94.9 % (94.0-98.0); MODE NASAL CANNULA; PATIENT TEMPERATURE 36.5; TOTAL HEMOGLOBIN 8.7 G/dl (13.5-17.5)
[2024-10-14] MEDS: furosemide 20 MG/2 ML vial IV ONE (09:52)
[2024-10-14] MEDS: amox tr/potassium clavulanate 875/125mg TAB PO SCH (09:52)
[2024-10-15] VITALS (9 sets, daily range): BP systolic 102–116; BP diastolic 48–95; PULSE 65–100; RESP 16–20; TEMP 97.2–98.3; O2SAT 90–97
[2024-10-15 01:46] LABS: PHOSPHORUS 3.5 MG/DL (2.3-4.5); POTASSIUM 4.2 MMOL/L (3.5-5.1)
[2024-10-15] MEDS ORDERED: amiodarone 200mg tablet PO SCH (08:00)
[2024-10-15] MEDS: furosemide 20 MG/2 ML vial IV ONE (10:25)
[2024-10-15 11:07] LABS: BASOPHILS % (AUTO) 0 % (0-1); EOSINOPHILS % (AUTO) 0.2 % (0-6); HEMATOCRIT 24.8 % (42.0-52.0); HEMOGLOBIN 8.2 g/dl (14.0-17.9); LYMPHOCYTES # (AUTO) 0.8 X10'3 (1.1-4.8); LYMPHOCYTES % (AUTO) 6.6 % (21-51); MEAN CORPUSCULAR VOLUME 93.8 FL (78-98); MONOCYTES # (AUTO) 1.2 X10'3 (0-0.9); MONOCYTES % (AUTO) 10.1 % (2-12); NEUTROPHILS % (AUTO) 83.1 % (42-75); PLATELET COUNT 137 X10'3 (140-440); RED BLOOD COUNT 2.64 X10'6 (4.70-6.10); RED CELL DISTRIBUTION WIDTH 15.7 % (11.5-14.5)
[2024-10-15 11:18] LABS: ALBUMIN 2.9 G/DL (3.4-5.0); ANION GAP 8 (8-16); BLOOD UREA NITROGEN 32 MG/DL (7-18); BUN/CREATININE RATIO 44.4 (10.0-20.0); CALCIUM 8.3 MG/DL (8.5-10.1); CHLORIDE 103 MMOL/L (99-107); CREATININE 0.72 MG/DL (0.60-1.10); GLUCOSE 154 MG/DL (70-104); POTASSIUM 3.9 MMOL/L (3.5-5.1); SODIUM 139 MMOL/L (135-145); TOTAL CARBON DIOXIDE 28.5 MMOL/L (24-32); eCRCL 102 ML/MIN; eGFR > 90 ML/MIN
[2024-10-15 11:39] LABS: ANISOCYTOSIS 3+; PLATELET ESTIMATE DECREASED; POLYCHROMASIA 2+
[2024-10-15] MEDS ORDERED: IRON,CARBONYL (45 MG ELEMENTAL IRON) SR.TABLET PO SCH (12:30)
[2024-10-15] MEDS: folic acid 1mg tablet PO SCH (12:30)
[2024-10-16] VITALS (10 sets, daily range): BP systolic 99–129; BP diastolic 55–69; PULSE 60–117; RESP 12–21; TEMP 96.7–98.8; O2SAT 93–96
[2024-10-16 04:18] LABS: BASOPHILS % (AUTO) 0 % (0-1); EOSINOPHILS # (AUTO) 0.1 X10'3 (0-0.9); EOSINOPHILS % (AUTO) 0.7 % (0-6); HEMATOCRIT 24.9 % (42.0-52.0); HEMOGLOBIN 8.3 g/dl (14.0-17.9); LYMPHOCYTES % (AUTO) 7.2 % (21-51); MEAN CORPUSCULAR HEMOGLOBIN 31.3 PG (27.0-31.0); MEAN CORPUSCULAR HGB CONC 33.3 g/dL (33.0-36.5); MEAN CORPUSCULAR VOLUME 94.1 FL (78-98); MEAN PLATELET VOLUME 9.1 FL (7.4-10.4); MONOCYTES # (AUTO) 1.5 X10'3 (0-0.9); MONOCYTES % (AUTO) 10.7 % (2-12); NEUTROPHILS # (AUTO) 11.4 X10'3 (1.8-7.7); NEUTROPHILS % (AUTO) 81.4 % (42-75); PLATELET COUNT 152 X10'3 (140-440); RED BLOOD COUNT 2.64 X10'6 (4.70-6.10); RED CELL DISTRIBUTION WIDTH 15.1 % (11.5-14.5)
[2024-10-16 04:50] LABS: ALBUMIN 2.6 G/DL (3.4-5.0); ANION GAP 7 (8-16); BLOOD UREA NITROGEN 31 MG/DL (7-18); CALCIUM 8.4 MG/DL (8.5-10.1); CHLORIDE 103 MMOL/L (99-107); CREATININE 0.66 MG/DL (0.60-1.10); GLUCOSE 114 MG/DL (70-104); PHOSPHORUS 4.5 MG/DL (2.3-4.5); POTASSIUM 4.4 MMOL/L (3.5-5.1); SODIUM 138 MMOL/L (135-145); TOTAL CARBON DIOXIDE 28.1 MMOL/L (24-32); eCRCL 111 ML/MIN; eGFR > 90 ML/MIN
[2024-10-16 04:56] LABS: NUCLEATED RED BLOOD CELLS 1 /100WBC (0-0); TOTAL CELLS COUNTED 100
[2024-10-16 04:57] LABS: ANISOCYTOSIS 2+; PLATELET ESTIMATE NORMAL; POLYCHROMASIA 2+
[2024-10-16] MEDS: iron polysaccharide complex 150mg capsule PO SCH (07:34)
[2024-10-16] MEDS: furosemide 20MG tablet PO SCH (09:30)
[2024-10-16] MEDS: potassium Cl 20 mEq SR tablet PO SCH (09:30)
[2024-10-16] MEDS: magnesium hydroxide 30ml (MOM) UD suspension PO PRN (22:44)
[2024-10-17 02:00] VITALS: BP 102/62; PULSE 78; RESP 16; TEMP 97.3; O2SAT 95
[2024-10-17 06:00] VITALS: BP 152/77; PULSE 63; RESP 19; TEMP 97.6; O2SAT 100
[2024-10-17 07:21] LABS: BASOPHILS % (AUTO) 0.1 % (0-1); EOSINOPHILS # (AUTO) 0.2 X10'3 (0-0.9); EOSINOPHILS % (AUTO) 1.4 % (0-6); HEMATOCRIT 25.8 % (42.0-52.0); HEMOGLOBIN 8.5 g/dl (14.0-17.9); LYMPHOCYTES # (AUTO) 0.8 X10'3 (1.1-4.8); LYMPHOCYTES % (AUTO) 6.3 % (21-51); MEAN CORPUSCULAR HEMOGLOBIN 31.3 PG (27.0-31.0); MEAN CORPUSCULAR HGB CONC 33.1 g/dL (33.0-36.5); MEAN CORPUSCULAR VOLUME 94.7 FL (78-98); MEAN PLATELET VOLUME 8.5 FL (7.4-10.4); MONOCYTES # (AUTO) 1.2 X10'3 (0-0.9); MONOCYTES % (AUTO) 9.7 % (2-12); NEUTROPHILS # (AUTO) 10.3 X10'3 (1.8-7.7); NEUTROPHILS % (AUTO) 82.5 % (42-75); PLATELET COUNT 189 X10'3 (140-440); RED BLOOD COUNT 2.73 X10'6 (4.70-6.10); RED CELL DISTRIBUTION WIDTH 15.6 % (11.5-14.5); WHITE BLOOD COUNT 12.5 X10'3 (4.5-11.0)
[2024-10-17 07:52] LABS: ALBUMIN 2.8 G/DL (3.4-5.0); ANION GAP 6 (8-16); BLOOD UREA NITROGEN 24 MG/DL (7-18); BUN/CREATININE RATIO 32.4 (10.0-20.0); CALCIUM 8.2 MG/DL (8.5-10.1); CHLORIDE 101 MMOL/L (99-107); CREATININE 0.74 MG/DL (0.60-1.10); GLUCOSE 130 MG/DL (70-104); MAGNESIUM 2.1 MG/DL (1.5-2.4); PHOSPHORUS 3.2 MG/DL (2.3-4.5); POTASSIUM 4.2 MMOL/L (3.5-5.1); SODIUM 137 MMOL/L (135-145); TOTAL CARBON DIOXIDE 29.8 MMOL/L (24-32); eCRCL 99 ML/MIN; eGFR > 90 ML/MIN
[2024-10-17 08:00] VITALS: RESP 17; O2SAT 96
[2024-10-17 08:05] LABS: NUCLEATED RED BLOOD CELLS 1 /100WBC (0-0); TOTAL CELLS COUNTED 100
[2024-10-17 08:06] LABS: ANISOCYTOSIS 1+; ELLIPTOCYTES FEW; PLATELET ESTIMATE NORMAL; POLYCHROMASIA 1+
[2024-10-17 09:04] VITALS: PULSE 67; RESP 20; O2SAT 97
[2024-10-17] MEDS ORDERED: POTA-197 PO (10:42)
[2024-10-17] MEDS ORDERED: HYDR-3965 PO (10:42)
[2024-10-17] MEDS ORDERED: FOLI1TAB27 PO (10:42)
[2024-10-17] MEDS ORDERED: IRON150C13 PO (10:42)
[2024-10-17] MEDS ORDERED: AMOX-580 PO (10:42)
[2024-10-17] MEDS ORDERED: LOP25T PO (10:42)
[2024-10-17] MEDS ORDERED: FURO20TA4 PO (10:42)
[2024-10-17 11:00] VITALS: BP 117/73; PULSE 63; RESP 16; TEMP 99.5; O2SAT 96
[2024-10-17] MEDS: bisacodyl 10mg suppository rectal RC PRN (11:15)
== END 2024-10-17 12:34 | disposition home health service (06) | DRG 219 ==
LOC: PAS IN 10-10 05:24 → CICU 2S 10-10 13:09 → PCU 3S 10-13 22:05
PROVIDERS: ADMIT Thoracic Surgery (Cardiothoracic Vascular Surgery); ATTEND Thoracic Surgery (Cardiothoracic Vascular Surgery)
PROC: 02100Z9 Bypass Coronary Artery, One Artery from Left Internal Mammary, Open Approach (ICD-10-PCS; 2024-10-10)
PROC: 021009W Bypass Coronary Artery, One Artery from Aorta with Autologous Venous Tissue, Open Approach (ICD-10-PCS; 2024-10-10)
PROC: 06BP4ZZ Excision of Right Saphenous Vein, Percutaneous Endoscopic Approach (ICD-10-PCS; 2024-10-10)
PROC: 02RX0JZ Replacement of Thoracic Aorta, Ascending/Arch with Synthetic Substitute, Open Approach (ICD-10-PCS; 2024-10-10)
PROC: B24BZZ4 Ultrasonography of Heart with Aorta, Transesophageal (ICD-10-PCS; 2024-10-10)
PROC: 5A1221Z Performance of Cardiac Output, Continuous (ICD-10-PCS; 2024-10-10)
PROC: 5A2204Z Restoration of Cardiac Rhythm, Single (ICD-10-PCS; 2024-10-10)
PROC: 30233K1 Transfusion of Nonautologous Frozen Plasma into Peripheral Vein, Percutaneous Approach (ICD-10-PCS; 2024-10-10)
PROC: 30233N1 Transfusion of Nonautologous Red Blood Cells into Peripheral Vein, Percutaneous Approach (ICD-10-PCS; 2024-10-10)
PROC: 30233R1 Transfusion of Nonautologous Platelets into Peripheral Vein, Percutaneous Approach (ICD-10-PCS; 2024-10-10)
PROC: 30233M1 Transfusion of Nonautologous Plasma Cryoprecipitate into Peripheral Vein, Percutaneous Approach (ICD-10-PCS; 2024-10-10)
PROC: 02RF08Z Replacement of Aortic Valve with Zooplastic Tissue, Open Approach (ICD-10-PCS; principal; 2024-10-10 08:08)
DX: I71.21 Aneurysm of the ascending aorta, without rupture (principal); I49.01 Ventricular fibrillation; D62 Acute posthemorrhagic anemia; D68.9 Coagulation defect, unspecified; I25.10 Atherosclerotic heart disease of native coronary artery without angina pectoris; D69.6 Thrombocytopenia, unspecified; E03.9 Hypothyroidism, unspecified; E87.70 Fluid overload, unspecified; I10 Essential (primary) hypertension; I35.1 Nonrheumatic aortic (valve) insufficiency; E11.9 Type 2 diabetes mellitus without complications
CPT/HCPCS: 36415; 36430; 36600; 71045; 71046; 76376; 80048; 80053; 81003; 82330; 82435; 82803; 82947; 82948; 83036; 83735; 84100; 84132; 84295; 84443; 85007; 85008; 85018; 85025; 85027; 85347; 85384; 85610; 85730; 86885; 86900; 86901; 86920; 87081; 88300; 88304; 93005; 93312; 93325; 93880; 93970; 94002; 94060; 94664; 94668; 94760; 97110; 97116; 97161; 97530; 97535; A4333; A4615; A4618; A5200; A6223; A6258; A6449; A7000; A7048; C1751; C1768; G0378; J0171; J0282; J0665; J0690; J1100; J1644; J1815; J1885; J1940; J2003; J2060; J2150; J2250; J2270; J2370; J2405; J2704; J2720; J2919; J3370; J3372; J3475; J3480; J3490; J7030; J7040; J7050; J7120; J7189; P9012; P9016; P9035; P9045; P9047; P9059

== ENCOUNTER 2024-10-24 10:27 | Outpatient (CLI) | payer MEDICARE ==
[~2024-10-24 10:27] MED LIST changes: +AMOX-580 PO; +FOLI1TAB27 PO; +FURO-150 PO; +FURO20TA4 PO; +HYDR-3965 PO; +IRON150C13 PO; +LOP25T PO; -MULT-1172 PO; +POTA-206 PO; +THC; +[UNRECOGNIZED DRUG - OTHER]
[2024-10-24 11:16] LABS: BASOPHILS # (AUTO) 0.1 X10'3 (0-0.2); BASOPHILS % (AUTO) 0.6 % (0-1); EOSINOPHILS # (AUTO) 0.3 X10'3 (0-0.9); HEMATOCRIT 27.2 % (42.0-52.0); HEMOGLOBIN 9.1 g/dl (14.0-17.9); LYMPHOCYTES # (AUTO) 0.7 X10'3 (1.1-4.8); LYMPHOCYTES % (AUTO) 6.9 % (21-51); MEAN CORPUSCULAR HEMOGLOBIN 32.1 PG (27.0-31.0); MEAN CORPUSCULAR HGB CONC 33.5 g/dL (33.0-36.5); MEAN CORPUSCULAR VOLUME 95.9 FL (78-98); MEAN PLATELET VOLUME 7.7 FL (7.4-10.4); MONOCYTES % (AUTO) 10.2 % (2-12); NEUTROPHILS # (AUTO) 8.1 X10'3 (1.8-7.7); NEUTROPHILS % (AUTO) 79.3 % (42-75); PLATELET COUNT 334 X10'3 (140-440); RED BLOOD COUNT 2.84 X10'6 (4.70-6.10); RED CELL DISTRIBUTION WIDTH 17.3 % (11.5-14.5); WHITE BLOOD COUNT 10.2 X10'3 (4.5-11.0)
[2024-10-24 11:22] LABS: ALBUMIN 2.9 G/DL (3.4-5.0); ANION GAP 8 (8-16); BLOOD UREA NITROGEN 10 MG/DL (7-18); BUN/CREATININE RATIO 13.9 (10.0-20.0); CALCIUM 8.3 MG/DL (8.5-10.1); CHLORIDE 105 MMOL/L (99-107); CREATININE 0.72 MG/DL (0.60-1.10); GLUCOSE 110 MG/DL (70-104); SODIUM 140 MMOL/L (135-145); TOTAL CARBON DIOXIDE 27.1 MMOL/L (24-32); eGFR > 90 ML/MIN
== END 2024-10-24 23:59 | disposition home or self-care (01) ==
LOC: LAB 10:27
PROVIDERS: ATTEND Thoracic Surgery (Cardiothoracic Vascular Surgery)
DX: J90 Pleural effusion, not elsewhere classified (principal); I51.7 Cardiomegaly; I50.9 Heart failure, unspecified; I25.10 Atherosclerotic heart disease of native coronary artery without angina pectoris
CPT/HCPCS: 36415; 71046; 80048; 85025

== ENCOUNTER 2024-10-27 10:00 | Outpatient (CLI) | payer MEDICARE | END 2024-10-27 23:59 | disposition home or self-care (01) | LOC: RAD 10:00 | PROVIDERS: ATTEND Thoracic Surgery (Cardiothoracic Vascular Surgery) | DX: I51.7 Cardiomegaly (principal); J90 Pleural effusion, not elsewhere classified | CPT/HCPCS: 71046 ==

== ENCOUNTER 2024-11-03 08:59 | Outpatient (CLI) | payer MEDICARE | END 2024-11-03 23:59 | disposition home or self-care (01) | LOC: RAD 08:59 | PROVIDERS: ATTEND Thoracic Surgery (Cardiothoracic Vascular Surgery) | DX: J90 Pleural effusion, not elsewhere classified (principal) | CPT/HCPCS: 71046 ==

== ENCOUNTER 2024-11-07 09:05 | Outpatient (CLI) | payer MEDICARE ==
[2024-11-07 09:49] LABS: ALBUMIN 3.2 G/DL (3.4-5.0); BLOOD UREA NITROGEN 25 MG/DL (7-18); BUN/CREATININE RATIO 32.9 (10.0-20.0); CALCIUM 8.4 MG/DL (8.5-10.1); CREATININE 0.76 MG/DL (0.60-1.10); GLUCOSE 108 MG/DL (70-104); TOTAL CARBON DIOXIDE 27.2 MMOL/L (24-32); eGFR > 90 ML/MIN
[2024-11-07 09:56] LABS: ANION GAP 9 (8-16); CHLORIDE 102 MMOL/L (99-107); POTASSIUM 4.1 MMOL/L (3.5-5.1); SODIUM 138 MMOL/L (135-145)
== END 2024-11-07 23:59 | disposition home or self-care (01) ==
LOC: LAB 09:05
PROVIDERS: ATTEND Thoracic Surgery (Cardiothoracic Vascular Surgery)
DX: Z01.812 Encounter for preprocedural laboratory examination (principal)
CPT/HCPCS: 36415; 80048

== ENCOUNTER 2024-11-29 05:20 | Inpatient (IN) | payer MEDICARE ==
[~2024-11-29] VITALS: Ht 185.4 cm; Wt 96.0 kg
[2024-11-29] VITALS (19 sets, daily range): BP systolic 87–127; BP diastolic 39–73; PULSE 81–100; RESP 14–23; TEMP 97–98.7; O2SAT 93–100
[~2024-11-29 05:20] MED LIST changes: -FURO-150 PO; -HYDR-3965 PO
[2024-11-29] MEDS: pantoprazole 40 MG vial IV ONE (05:52)
[2024-11-29 06:23] LABS: BASOPHILS % (AUTO) 0.3 % (0-1); EOSINOPHILS # (AUTO) 0.1 X10'3 (0-0.9); EOSINOPHILS % (AUTO) 0.5 % (0-6); HEMATOCRIT 27.1 % (42.0-52.0); HEMOGLOBIN 8.8 g/dl (14.0-17.9); LYMPHOCYTES # (AUTO) 1.3 X10'3 (1.1-4.8); LYMPHOCYTES % (AUTO) 10.8 % (21-51); MEAN CORPUSCULAR HEMOGLOBIN 30.8 PG (27.0-31.0); MEAN CORPUSCULAR HGB CONC 32.4 g/dL (33.0-36.5); MEAN CORPUSCULAR VOLUME 95.1 FL (78-98); MEAN PLATELET VOLUME 8.6 FL (7.4-10.4); MONOCYTES # (AUTO) 1.2 X10'3 (0-0.9); MONOCYTES % (AUTO) 10.5 % (2-12); NEUTROPHILS # (AUTO) 9.3 X10'3 (1.8-7.7); NEUTROPHILS % (AUTO) 77.9 % (42-75); PLATELET COUNT 238 X10'3 (140-440); RED BLOOD COUNT 2.85 X10'6 (4.70-6.10); RED CELL DISTRIBUTION WIDTH 15.9 % (11.5-14.5); WHITE BLOOD COUNT 11.9 X10'3 (4.5-11.0)
[2024-11-29 06:43] LABS: ALANINE AMINOTRANSFERASE 30 U/L (12-78); ALKALINE PHOSPHATASE 105 IU/L (46-116); ANION GAP 8 (8-16); APTT 23 SECONDS (22-32); ASPARTATE AMINO TRANSFERASE 19 U/L (10-37); BILIRUBIN,TOTAL 0.4 MG/DL (0.1-1.0); BLOOD UREA NITROGEN 67 MG/DL (7-18); BUN/CREATININE RATIO 85.9 (10.0-20.0); CALCIUM 8.6 MG/DL (8.5-10.1); CHLORIDE 105 MMOL/L (99-107); CREATININE 0.78 MG/DL (0.60-1.10); GLUCOSE 122 MG/DL (70-104); INR 1.1 INR; POTASSIUM 5.2 MMOL/L (3.5-5.1); PROTHROMBIN TIME 11.9 SECONDS (9.0-12.0); SODIUM 140 MMOL/L (135-145); TOTAL CARBON DIOXIDE 26.6 MMOL/L (24-32); eCRCL 94 ML/MIN; eGFR > 90 ML/MIN
[2024-11-29] MEDS: pantoprazole 40MG/NS 100ML BAG 100 ML IV SCH (06:44)
[2024-11-29] MEDS ORDERED: potassium Cl 20 mEq SR tablet PO PRN ×2 (08:20)
[2024-11-29] MEDS ORDERED: magnesium Cl slow-release 64mg tablet PO PRN (08:20)
[2024-11-29] MEDS ORDERED: potassium Cl 40MEQ/1/2NS 520ml 520 ML IV PRN (08:20)
[2024-11-29] MEDS ORDERED: ondansetron/PF 4mg/2ml inj IV PRN (08:20)
[2024-11-29] MEDS ORDERED: mag hydrox/Alum hydrox/simeth 30ml oral suspension PO PRN (08:20)
[2024-11-29] MEDS ORDERED: magnesium hydroxide 30ml (MOM) UD suspension PO PRN (08:20)
[2024-11-29] MEDS ORDERED: acetaminophen 325mg tablet PO PRN (08:20)
[2024-11-29] MEDS ORDERED: morphine 2 MG/ML inj. syringe IV PRN ×2 (08:20)
[2024-11-29] MEDS ORDERED: magnesium sulf-water 2g/50mL 50 ML IV PRN (08:20)
[2024-11-29] MEDS ORDERED: magnesium sulf-water 4G/100mL 100 ML IV PRN (08:20)
[2024-11-29] MEDS: normal saline 1000ml 1,000 ML IV SCH (08:36)
[2024-11-29 08:46] LABS: MAGNESIUM 1.9 MG/DL (1.5-2.4)
[2024-11-29] MEDS ORDERED: simethicone 40mg/0.6ml oral drops 30ml ONE (10:00)
[2024-11-29 11:09] LABS: THYROID STIMULATING HORMONE 4.24 ulU/ml (0.34-4.50)
[2024-11-29] MEDS: atorvastatin 20mg tablet PO SCH (11:41)
[2024-11-29] MEDS: levoTHYROXINE 88mcg tablet PO SCH (11:41)
[2024-11-29] MEDS: octreotide inj. 500 MCG in normal saline 100ml IV soln 97.5 ML IV SCH (12:25)
[2024-11-29 12:30] LABS: BASOPHILS % (AUTO) 0.4 % (0-1); EOSINOPHILS % (AUTO) 0.5 % (0-6); HEMATOCRIT 29.1 % (42.0-52.0); HEMOGLOBIN 9.6 g/dl (14.0-17.9); LYMPHOCYTES # (AUTO) 2.1 X10'3 (1.1-4.8); LYMPHOCYTES % (AUTO) 21.8 % (21-51); MEAN CORPUSCULAR HEMOGLOBIN 30.6 PG (27.0-31.0); MEAN CORPUSCULAR HGB CONC 32.9 g/dL (33.0-36.5); MEAN PLATELET VOLUME 8.2 FL (7.4-10.4); MONOCYTES # (AUTO) 1.2 X10'3 (0-0.9); MONOCYTES % (AUTO) 12.8 % (2-12); NEUTROPHILS # (AUTO) 6.3 X10'3 (1.8-7.7); NEUTROPHILS % (AUTO) 64.5 % (42-75); PLATELET COUNT 207 X10'3 (140-440); RED BLOOD COUNT 3.13 X10'6 (4.70-6.10); RED CELL DISTRIBUTION WIDTH 16.5 % (11.5-14.5); WHITE BLOOD COUNT 9.7 X10'3 (4.5-11.0)
[2024-11-29] MEDS ORDERED: LORazepam 2 mg/ml vial IV PRN (12:30)
[2024-11-29] MEDS ORDERED: LORazepam 1 MG tablet PO PRN (12:30)
[2024-11-29] MEDS: folic acid 1mg tablet PO SCH (14:00)
[2024-11-29] MEDS: thiamine 100mg tablet PO SCH (14:00)
[2024-11-29] MEDS ORDERED: LIDOcaine 2% Viscous 15ml cup ONE (15:32)
[2024-11-29] MEDS ORDERED: MIDAZolam 1 MG/ML 5ML VIAL ONE (15:38)
[2024-11-29] MEDS ORDERED: fentaNYL/PF 50MCG/1 ML 2ML syringe ONE (15:38)
[2024-11-29] MEDS: K and/or MAG REPLACEMENT MC SCH (20:00)
[2024-11-29] MEDS: docusate sod 100mg capsule PO SCH (20:00)
[2024-11-30 06:00] VITALS: BP 97/55; PULSE 84; RESP 18; TEMP 97.7; O2SAT 98
[2024-11-30 07:06] LABS: BASOPHILS # (AUTO) 0.1 X10'3 (0-0.2); BASOPHILS % (AUTO) 0.8 % (0-1); EOSINOPHILS # (AUTO) 0.4 X10'3 (0-0.9); EOSINOPHILS % (AUTO) 3.8 % (0-6); HEMATOCRIT 27.5 % (42.0-52.0); HEMOGLOBIN 9.1 g/dl (14.0-17.9); LYMPHOCYTES # (AUTO) 1.2 X10'3 (1.1-4.8); LYMPHOCYTES % (AUTO) 12.5 % (21-51); MEAN CORPUSCULAR HEMOGLOBIN 30.7 PG (27.0-31.0); MEAN CORPUSCULAR HGB CONC 33.1 g/dL (33.0-36.5); MEAN CORPUSCULAR VOLUME 92.5 FL (78-98); MEAN PLATELET VOLUME 8.5 FL (7.4-10.4); MONOCYTES # (AUTO) 0.7 X10'3 (0-0.9); MONOCYTES % (AUTO) 6.8 % (2-12); NEUTROPHILS # (AUTO) 7.5 X10'3 (1.8-7.7); NEUTROPHILS % (AUTO) 76.1 % (42-75); PLATELET COUNT 207 X10'3 (140-440); RED BLOOD COUNT 2.98 X10'6 (4.70-6.10); RED CELL DISTRIBUTION WIDTH 16.9 % (11.5-14.5); WHITE BLOOD COUNT 9.9 X10'3 (4.5-11.0)
[2024-11-30 07:16] LABS: INR 1.1 INR
[2024-11-30 07:29] LABS: ALANINE AMINOTRANSFERASE 28 U/L (12-78); ALBUMIN 3.4 G/DL (3.4-5.0); ALBUMIN/GLOBULIN RATIO 1.1 (1.1-1.5); ALKALINE PHOSPHATASE 90 IU/L (46-116); ANION GAP 12 (8-16); ASPARTATE AMINO TRANSFERASE 23 U/L (10-37); BILIRUBIN,TOTAL 0.6 MG/DL (0.1-1.0); BLOOD UREA NITROGEN 45 MG/DL (7-18); BUN/CREATININE RATIO 59.2 (10.0-20.0); CALCIUM 8.5 MG/DL (8.5-10.1); CHLORIDE 107 MMOL/L (99-107); CREATININE 0.76 MG/DL (0.60-1.10); GLUCOSE 139 MG/DL (70-104); LIPASE 52 U/L (16-77); MAGNESIUM 2.2 MG/DL (1.5-2.4); PHOSPHORUS 4.1 MG/DL (2.3-4.5); POTASSIUM 4.3 MMOL/L (3.5-5.1); SODIUM 140 MMOL/L (135-145); TOTAL CARBON DIOXIDE 21.5 MMOL/L (24-32); TOTAL PROTEIN 6.4 G/DL (6.4-8.2); eCRCL 96 ML/MIN; eGFR > 90 ML/MIN
[2024-11-30] MEDS: pantoprazole 40 MG vial IV SCH (07:59)
[2024-11-30] MEDS: aspirin 81mg, enteric-coated 1 TAB TABLET.DR PO SCH (07:59)
[2024-11-30 08:30] VITALS: RESP 18; O2SAT 97
[2024-11-30 10:00] VITALS: BP 111/71; PULSE 78; RESP 16; TEMP 98.1; O2SAT 98
[2024-11-30 18:00] VITALS: BP 121/58; PULSE 85; RESP 16; TEMP 98; O2SAT 97
[2024-11-30 20:00] VITALS: RESP 15; O2SAT 65
[2024-11-30 22:00] VITALS: BP 102/53; PULSE 83; RESP 16; TEMP 98.5; O2SAT 97
[2024-12-01 06:00] VITALS: BP 117/75; PULSE 82; RESP 15; TEMP 98.3; O2SAT 95
[2024-12-01 06:16] LABS: INR 1.1 INR
[2024-12-01 06:19] LABS: BASOPHILS % (AUTO) 0.5 % (0-1); EOSINOPHILS # (AUTO) 0.4 X10'3 (0-0.9); EOSINOPHILS % (AUTO) 5.2 % (0-6); HEMATOCRIT 24.6 % (42.0-52.0); HEMOGLOBIN 8.2 g/dl (14.0-17.9); MEAN CORPUSCULAR HEMOGLOBIN 30.7 PG (27.0-31.0); MEAN CORPUSCULAR HGB CONC 33.4 g/dL (33.0-36.5); MEAN CORPUSCULAR VOLUME 92.1 FL (78-98); MEAN PLATELET VOLUME 8.1 FL (7.4-10.4); MONOCYTES # (AUTO) 0.9 X10'3 (0-0.9); NEUTROPHILS # (AUTO) 5.5 X10'3 (1.8-7.7); NEUTROPHILS % (AUTO) 70.3 % (42-75); PLATELET COUNT 189 X10'3 (140-440); RED BLOOD COUNT 2.67 X10'6 (4.70-6.10); RED CELL DISTRIBUTION WIDTH 16.5 % (11.5-14.5); WHITE BLOOD COUNT 7.8 X10'3 (4.5-11.0)
[2024-12-01 06:39] LABS: ALANINE AMINOTRANSFERASE 22 U/L (12-78); ALBUMIN 3.1 G/DL (3.4-5.0); ALBUMIN/GLOBULIN RATIO 1.1 (1.1-1.5); ALKALINE PHOSPHATASE 74 IU/L (46-116); ANION GAP 8 (8-16); ASPARTATE AMINO TRANSFERASE 13 U/L (10-37); BILIRUBIN,TOTAL 0.5 MG/DL (0.1-1.0); BLOOD UREA NITROGEN 20 MG/DL (7-18); BUN/CREATININE RATIO 35.1 (10.0-20.0); CALCIUM 8.3 MG/DL (8.5-10.1); CHLORIDE 108 MMOL/L (99-107); CREATININE 0.57 MG/DL (0.60-1.10); GLUCOSE 120 MG/DL (70-104); LIPASE 55 U/L (16-77); PHOSPHORUS 3.5 MG/DL (2.3-4.5); POTASSIUM 3.8 MMOL/L (3.5-5.1); SODIUM 141 MMOL/L (135-145); TOTAL CARBON DIOXIDE 25.1 MMOL/L (24-32); TOTAL PROTEIN 5.8 G/DL (6.4-8.2); eCRCL 128 ML/MIN; eGFR > 90 ML/MIN
[2024-12-01 10:00] VITALS: BP 112/68; PULSE 85; RESP 17; TEMP 98.5; O2SAT 98
[2024-12-01] MEDS ORDERED: ASCO-134 PO (12:34)
[2024-12-01] MEDS ORDERED: ALBU18HF2 INH (12:34)
[2024-12-01] MEDS ORDERED: PANT40TA54 PO (12:34)
[2024-12-01] MEDS ORDERED: FERR-119 PO (12:34)
[2024-12-01] MEDS ORDERED: thiamine tablet PO (12:34)
[2024-12-01] MEDS ORDERED: MULT-1085 PO (12:34)
== END 2024-12-01 15:00 | disposition home or self-care (01) | DRG 379 ==
LOC: ER 05:20 → ED HOLD 08:22 → ORTHO 4S 09:35
PROVIDERS: ADMIT Family Medicine; ATTEND Family Medicine
PROC: 30233N1 Transfusion of Nonautologous Red Blood Cells into Peripheral Vein, Percutaneous Approach (ICD-10-PCS; principal; 2024-11-29)
PROC: 0DB78ZX Excision of Stomach, Pylorus, Via Natural or Artificial Opening Endoscopic, Diagnostic (ICD-10-PCS; 2024-11-29)
DX: K26.4 Chronic or unspecified duodenal ulcer with hemorrhage (principal); K29.71 Gastritis, unspecified, with bleeding; E78.00 Pure hypercholesterolemia, unspecified; E03.9 Hypothyroidism, unspecified; D64.9 Anemia, unspecified; F10.90 Alcohol use, unspecified, uncomplicated; Y90.9 Presence of alcohol in blood, level not specified; R73.9 Hyperglycemia, unspecified; K44.9 Diaphragmatic hernia without obstruction or gangrene; Z95.2 Presence of prosthetic heart valve; Z87.11 Personal history of peptic ulcer disease; Z79.899 Other long term (current) drug therapy; Z88.8 Allergy status to other drugs, medicaments and biological substances; Z87.891 Personal history of nicotine dependence
CPT/HCPCS: 36415; 36430; 43239; 80053; 82948; 83690; 83735; 84100; 84443; 85025; 85610; 85730; 86885; 86900; 86901; 86920; 87081; 93005; 96374; 97116; 97161; 97530; 99152; 99285; A4620; A6209; A6258; A6446; G0378; J2250; J2354; J2470; J3010; J7030; J7120; P9016